=== PATIENT | female | born 1980 | race Caucasian/White ===

== ENCOUNTER 2019-04-10 07:29 | Inpatient (IN) | payer MEDICAID ==
[~2019-04-10] VITALS: Ht 152.4 cm; Wt 70.8 kg
[~2019-04-10 07:29] MED LIST: PREN1TAB49 PO
[2019-04-10 07:39] VITALS: Ht 152.4 cm; Wt 70.8 kg
[2019-04-10] MEDS ORDERED: OXYTOCIN 30 UNITS/LR 500 ML IV SCH ×4 (08:00→19:20)
[2019-04-10] MEDS ORDERED: LIDOCAINE 1% (MPF) 30 ML INJ INJ PRN (08:00)
[2019-04-10] MEDS ORDERED: CARBOPROST 250 MCG INJ IM PRN ×2 (08:00→19:30)
[2019-04-10] MEDS ORDERED: IBUPROFEN 600 MG TAB PO PRN (08:00)
[2019-04-10] MEDS ORDERED: BUTORPHANOL 2 MG INJ IV PRN (08:00)
[2019-04-10] MEDS ORDERED: OXYTOCIN 30 UNITS/LR 500 ML IV PRN ×2 (08:00→19:30)
[2019-04-10] MEDS ORDERED: METHYLERGONOVINE 0.2 MG INJ IM PRN ×2 (08:00→19:30)
[2019-04-10] MEDS ORDERED: MISOPROSTOL 200 MCG TAB PR PRN ×2 (08:00→19:30)
--- NOTE | 2019-04-10 18:31 | PREOPHP ---
DATE OF ADMISSION: 04/10/2019 HISTORY OF PRESENT ILLNESS: Ms. Michelle Kelly is a 38-year-old 3, para 1, EDC 04/06/2019, i ntrauterine at 40 plus weeks gestational age, admitted for post-EDC induction. She denies any contractions, vaginal bleeding or discharge. Her care took place at [facility]. PAST MEDICAL HISTORY: None. MEDICATIONS: vitamins. PAST SURGICAL HISTORY: None. OBSTETRICAL HISTORY: x1 vaginal delivery, x1 missed AB. GYNECOLOGIC HISTORY: 12, regular 3 to 4 days. Denies any sexually transmitted infections. Sexually active with 1 partner. SOCIAL HISTORY: Denies any smoking, drugs or alcohol. FAMILY HISTORY: None. REVIEW OF SYSTEMS: All within normal except history of present illness. PHYSICAL EXAMINATION: HEENT: Within normal. LUNGS: CTA bilateral. CARDIOVASCULAR: S1, S2. Regular rate, rhythm. ABDOMEN: Gravid, nontender. Negative CVA bilateral. EXTREMITIES: Negative. No calf tenderness. PELVIC: Vaginal exam: 3 cm, 80%, -2 station. heart tracing category 1. Tocometer: Occasion al contractions. ASSESSMENT: Intrauterine at 40 plus weeks gestational age, admitted for post-EDC induction . PLAN: Start Pitocin. Risks, benefits and alternatives were explained. All questions were answered. Dictated By: DANIEL KELLER/ERIKA Conf#: [id number] DID#: [id number]
--- NOTE | 2019-04-10 19:20 | LDN ---
Date/Time of Note Date/Time of Note DATE: 04/10/19 TIME: 19:19 Delivery Summary Weeks of Gestation 40 Placenta Delivered: Spontaneously Meconium: none Laceration repair: 1st degree vaginal laceration repair with 3-0 chromic Anesthesia type: Local Estimated blood loss: 200 Sponge & Needle done & correct: Yes All needle counts correct: Yes Any foreign bodies felt in the: No Infant Delivery Information Sex Infant Sex: female Apgars 1 Minute: 8 5 Minute: 9 Suctioning Nose & mouth suctioned at luan: No Delee suction performed: No Umbilical Cord Umbilical cord with: 3 Vessels Cord presentations: no nuchal cord Cord Blood was obtained: Yes DANIEL LOPEZ MD Apr 10, 2019 19:20
[2019-04-10] MEDS ORDERED: OXYCODONE/ASPIRIN (4.88/325) TAB PO PRN ×2 (19:30)
[2019-04-10] MEDS ORDERED: LANOLIN HPA 1 PKT TOP PRN (19:30)
[2019-04-10] MEDS ORDERED: WITCH HAZEL/GLYCERIN PAD PR PRN (19:30)
[2019-04-10] MEDS ORDERED: ONDANSETRON 4 MG INJ IV PRN (19:30)
[2019-04-10] MEDS ORDERED: NACL 0.9% 3 ML SYG IV SCH (19:30)
[2019-04-10] MEDS: LACTATED RINGER'S 1,000 ML IV SCH (21:05)
[2019-04-10 21:30] VITALS: BP 106/57; PULSE 70; RESP 18
[2019-04-10] MEDS: SENNA/DOCUSATE NA (8.6MG/50MG) TAB PO SCH (23:40)
[2019-04-10] MEDS: IBUPROFEN 600 MG TAB PO SCH (23:40)
[2019-04-11] VITALS: BP 118/74; PULSE 72; RESP 20
[2019-04-11 04:05] VITALS: BP 93/54; PULSE 69; RESP 18
[2019-04-11] MEDS: IBUPROFEN 600 MG TAB PO SCH ×4 (05:41→23:33)
[2019-04-11 08:00] VITALS: BP 90/56; PULSE 67; RESP 18
[2019-04-11] MEDS: SENNA/DOCUSATE NA (8.6MG/50MG) TAB PO SCH ×2 (08:19→20:43)
[2019-04-11 12:00] VITALS: BP 92/51; PULSE 72; RESP 18
[2019-04-11 16:00] VITALS: BP 111/64; PULSE 65; RESP 18
--- NOTE | 2019-04-11 17:02 | QN ---
Documentation Comment post #1 no c/o had b.m fundus firm lochia min laceration ok ext neg for tenderness Plan home in am ETHAN HEMPHILL MD Apr 11, 2019 17:02
[2019-04-11 20:00] VITALS: BP 118/66; PULSE 62; RESP 18
[2019-04-12 04:00] VITALS: BP 95/65; PULSE 65; RESP 20
[2019-04-12] MEDS: IBUPROFEN 600 MG TAB PO SCH ×2 (06:34→11:24)
[2019-04-12 08:00] VITALS: BP 117/71; PULSE 64; RESP 18
[2019-04-12] MEDS: SENNA/DOCUSATE NA (8.6MG/50MG) TAB PO SCH (08:48)
--- NOTE | 2019-04-12 11:57 | PN ---
Date/Time of Note Date/Time of Note DATE: 04/12/19 TIME: 11:53 OB Subjective Subjective Subjective Reports mild cramping. Reports decreased vaginal bleeding. Urinated. Denies any other complaint. Breast-feeding. Denies any depressive symptoms. Ambulated without any symptoms. Denies any headache, blurred vision, epigastric pain right upper quadrant pain, fever, chills. OB Objective Objective Objective General appearance: Alert and oriented x4 does not appear to be in any acute distress Abdomen: Soft, fundus palpable 2 cm below the umbilicus and nontender. Breast: No evidence of mastitis or fissure Extremities: No calf tenderness, no click no edema no cord palpable VS - Last 72 Hours, by Label Date Temp Pulse Resp B/P (MAP) Pulse Ox O2 O2 Flow FiO2 Time Delivery Rate 04/12/19 98.3 64 18 117/71 Room Air 08:00 (86) 04/12/19 98.9 65 20 95/65 (75) Room Air 04:00 04/11/19 98.2 62 18 118/66 Room Air 20:00 (83) 04/11/19 97.7 65 18 111/64 Room Air 16:00 (80) 04/11/19 97.8 72 18 92/51 (65) Room Air 12:00 04/11/19 98.1 67 18 90/56 (67) Room Air 08:00 04/11/19 98.1 69 18 93/54 (67) Room Air 04:05 04/11/19 97.7 72 20 118/74 Room Air 00:00 (89) 04/10/19 97.7 70 18 106/57 Room Air 21:30 (73) OB Assessment/Plan Other Assessment: PPD #2 Doing well Mild anemia, asymptomatc DC home Follow up in 6 weeks post with the office or sooner RPN Iron BId and stool softner NSAIDs PRN pain and cramps DEBBIE OLSEN MD Apr 12, 2019 11:57
--- NOTE | 2019-04-12 11:59 | PD.PPDC ---
STOCKROOM INVENTORY CLERK Discharge Instruction Provider Information Physician Information Debbie Olsen MD Condition [id number] Patient Condition: [id number] Good Diet [id number] Diet: Ltesp8z Special Diet (Iron rich diet) Activity/Restrictions [id number] Activity: [id number] Normal Activity [id number] Restrictions: [id number] No Exercising No Lifting No Driving No Sexual Activity Nothing in the Vagina No [place] No Tampons, douche Follow-up Follow-up with Physician: 6, Week/Weeks Return to clinic for [id number] DESIGN ENG Instructions: Gefsq2o Fever greater than 101 Chills Worsening abdominal pain Excessive Vaginal Bleeding [id number] OB Instructions: Iorgx3n Breast Tenderness Depression Blurried Vision Headache DEBBIE OLSEN MD Apr 12, 2019 11:59
[2019-04-12] MEDS ORDERED: Lanolin Hpa TOP (12:01)
[2019-04-12] MEDS ORDERED: IBUP-1542 PO (12:01)
[2019-04-12] MEDS ORDERED: TUCKS PR (12:01)
[2019-04-12] MEDS ORDERED: IRON1TAB78 PO (12:02)
--- NOTE | 2019-04-12 12:03 | DS ---
Date/Time of Note Date/Time of Note DATE: 04/12/19 TIME: 12:02 Discharge Summary Admission/Discharge Info Admit Date/Time Apr 10, 2019 at 07:29 Discharge Date/Time April 12, 2019 Patient Condition: Good Consults N/A Procedures Induction for postdates , non-complicated Hx of Present Illness Ms. Michelle Kelly is a 38-year-old 3, para 1, EDC 04/06/2019, intrauterine at 40 plus weeks gestational age, admitted for post-EDC induction. care with [facility] [place]. Patient was admitted for postdate induction. She delivered vaginally. Antepartum course was not completed. course was uncomplicated with mild anemia. Patient was asymptomatic. On day #2 patient was noted to be stable enough to be discharged. She was ambulating. Tolerated regular diet. She was breast-feeding. She denied any depressive symptoms. Advised to take iron twice a day with stool softener with a follow-up in 6 weeks with a PROCUREMENT SPECIALIST clinic. Precaution was given to return to the hospital if she has any fever, chills, increased vaginal bleeding the need to change her pads every 2 hours, dizziness, lightheadedness or any other concerns. Hospital Course Complicated by only anemia, asymptomatic, discharged home in stable condition with a prescription of the iron Home Meds Active Scripts Iron,Carbonyl/Vit C/Vit B12/Fa (IRON 100 PLUS TABLET) 1 Each Tablet, 1 EACH PO BID, #60 TAB 2 Refills Prov:DEBBIE OLSEN MD 04/12/19 [Lanolin [facility]] 1 APPLIC OINT No Conflict Check, 1 APPLIC TOP BEDSIDE MEDICATION PRN for .NIPPLES, #1 2 Refills Prov:DEBBIE OLSEN MD 04/12/19 Witch Clarisse* (Tucks* Pads) 40 Pad Pad, 1 PAD SC BEDSIDE MEDICATION PRN for .HEMORRHOID/EPISIOTOMY PAIN, #1 PAD 2 Refills Prov:DEBBIE OLSEN MD 04/12/19 Ibuprofen* (Ibuprofen*) 600 Mg Tablet, 600 MG PO Q6, #60 TAB 2 Refills Prov:DEBBIE OLSEN MD 04/12/19 Reported Medications Vits W-Ca,Fe,Fa(<1MG) () 1 Tab Tablet, 1 TAB PO DAILY 1/28/13 Primary Care Provider Not On Staff Doctor Time spent on discharge: > 30 minutes DEBBIE OLSEN MD Apr 12, 2019 12:03
--- NOTE | 2019-04-13 14:43 | DELSUM ---
Delivery Summary A-C Datetime Report Generated by CPN: 04/13/2019 14:43 DELIVERY PERSONNEL Quarry Extraction Worker: Soleimani, Alecia MATERNAL INFORMATION Delivery Anesthesia: Local Delivery QBL (ml): 200 Placenta Cultured: No Maternal Complications: None LABOR SUMMARY EDC: 04/06/2019 00:00 No. Babies in Womb: 1 Attempted: No Labor Anesthesia: None LABOR INFORMATION Reason for Induction: Postterm Onset of Labor: 04/10/2019 11:00 Complete Dilatation: 04/10/2019 18:00 Oxytocin: Augmentation Group B Beta Strep: Negative Steroids Given: None Reason Steroids Not Administered: Not Applicable MEMBRANES Membranes Rupture Method: Artificial Rupture of Membranes: 04/10/2019 18:03 Length of Rupture (hr): 0.08 Amniotic Fluid Color: Clear Amniotic Fluid Amount: Moderate Amniotic Fluid Odor: None STAGES OF LABOR Stage 1 hr: 7 Stage 1 min: 0 Stage 2 hr: 0 Stage 2 min: 8 Stage 3 hr: 0 Stage 3 min: 2 Total Time in Labor hr: 7 Total Time in Labor min: 10 VAGINAL DELIVERY Laceration Extension: First Degree Laceration Type: Vaginal Initial Vag Sponge Count: 10 Final Vag Sponge Count: 10 Initial Vag Sharps Count: 2 Final Vag Sharps Count: 2 Sponge Count Correct: Yes; Vaginal Sweep Performed Sharps Count Correct: Yes BABY A INFORMATION Infant Delivery Date/Time: 04/10/2019 18:08 Method of Delivery: Vaginal Born in Route : No : N/A Forceps: N/A Vacuum Extraction: N/A Shoulder Dystocia : N/A SHOULDER DYSTOCIA BABY A Infant Delivery Date/Time: 04/10/2019 18:08 PRESENTATION/POSITION BABY A Presentation: Cephalic Cephalic Presentation: Vertex Vertex Position: Left Occipital Posterior Breech Presentation: N/A PLACENTA INFORMATION BABY A Placenta Delivery Time : 04/10/2019 18:10 Placenta Method of Delivery: Spontaneous Placenta Status: Delivered SCORES BABY A Heart Rate 1 min: >100 bpm Resp Effort 1 min: Good Cry Reflex Irritability 1 min: Cough/Sneeze/Pulls Away Muscle Tone 1 min: Active Motion Color 1 min: Blue/Pale Resuscitation Effort 1 min: Tactile Stimulation SCORE 1 MIN: 8 Heart Rate 5 min: >100 bpm Resp Effort 5 min: Good Cry Reflex Irritability 5 min: Cough/Sneeze/Pulls Away Muscle Tone 5 min: Active Motion Color 5 min: Body [place], Extremit Blue Resuscitation Effort 5 min: Tactile Stimulation SCORE 5 MIN: 9 INFANT INFORMATION BABY A Gestational Age at Delivery: 40.4 Gestational Status: Full Term- 39- 40.6 Weeks Outcome : Liveborn Condition : Stable Infant Sex: Female IDENTIFICATION/MEDS BABY A ID Band Number: [id number] ID Band Location: Right Leg; Left Leg Sensor Applied: Yes Sensor Number: [id number] Sensor Location : Cord Clamp Vitamin K Given : Not Given Erythromycin Given: Not Given WEIGHT/LENGTH BABY A Infant Birthweight (gm): 3775 Infant Weight (lb): 8 Weight (oz): 5 Length (in): 19.00 Length (cm): 48.26 CORD INFORMATION BABY A No. Cord Vessels: 3 Nuchal Cord : N/A Infant Suction: Mouth; Nose ASSESSMENT BABY A Energy Efficiency Specialist/ALS Called : No Transferred To: Remains with Mother
== END 2019-04-12 14:10 | disposition home or self-care (01) | DRG 807 ==
LOC: L-D 07:29 → PP1 21:19
PROVIDERS: ADMIT Obstetrics & Gynecology; ATTEND Obstetrics & Gynecology
PROC: 0HQ9XZZ Repair Perineum Skin, External Approach (ICD-10-PCS; 2019-04-10)
PROC: 10E0XZZ Delivery of Products of Conception, External Approach (ICD-10-PCS; principal; 2019-04-10 08:00)
DX: O48.0 Post-term pregnancy (principal); O70.0 First degree perineal laceration during delivery; O90.81 Anemia of the puerperium; D64.9 Anemia, unspecified; Z37.0 Single live birth; Z3A.40 40 weeks gestation of pregnancy
CPT/HCPCS: 76815; 85025; 85610; 85730; 86592; 86850; 86900; 86901; J2590; J7120